=== PATIENT | male | born 1985 | race Two or more races ===

== ENCOUNTER 2017-06-01 07:39 | Emergency (ER) | payer OTHER ==
[~2017-06-01] VITALS: Ht 162.6 cm; Wt 83.9 kg
[2017-06-01 07:46] VITALS: BP 122/84
== END 2017-06-01 07:57 ==
LOC: ER 07:41
DX: Z00.00 Encounter for general adult medical examination without abnormal findings (principal)
CPT/HCPCS: A4606; Z7610